=== PATIENT | female | born 1940 | race Caucasian/White ===

== ENCOUNTER 2024-12-16 09:10 | Emergency (ER) | payer OTHER, SELFPAY ==
[2024-12-16 09:14] VITALS: BP 127/81
--- NOTE | 2024-12-16 09:27 | ED.GENMED ---
History of Present Illness
<Tere Hammond MEDICAL PHOTOGRAPHER - Last Filed: 12/16/24 15:22>
General
Chief Complaint: Heart Rate Problem
Source: patient
Exam Limitations: none
Time Seen by Provider: 12/16/24 09:25
Nursing documentation reviewed up to this point in time: agreed with
History of Present Illness
History of Present Illness:
76-year-old female history of HLD, mitral regurg presents stating she woke up at 5 AM to go to the bathroom and noted that her heart rate was fast and irregular. She denies shortness of breath or chest pain. She states she feels 'a little
lightheaded.' She denies N/V/D/C.
Past History
<Tere Hammond, MEDICAL PHOTOGRAPHER - Last Filed: 12/16/24 15:22>
Past History
ED Past Medical History: Hypercholesterolemia and Other (Mitral valve regurgitation.)
ED Past Surgical History: Tonsilectomy
Social History
Tobacco: Non-smoker
Alcohol: Occasional
Review of Systems
<Tere Hammond, MEDICAL PHOTOGRAPHER - Last Filed: 12/16/24 15:22>
Review of Systems
Allergies reviewed?: Yes
All Other Systems: ROS reviewed and negative except as documented in HPI and ROS
Constitutional: Denies fever or fatigue
EENT: Denies sore throat
Respiratory: Denies cough or trouble breathing
Cardiac: Reports palpitations; Denies chest pain, diaphoresis or syncope
ABD/GI: Denies abdominal pain, nausea, vomiting or diarrhea
: Denies dysuria, frequency or difficulty voiding
Musculoskeletal: Reports no symptoms
Skin: Reports no symptoms
Neurological: Reports no symptoms
Phy Exam
<Tere Hammond, MEDICAL PHOTOGRAPHER - Last Filed: 12/16/24 15:22>
Physical Exam
Physical Exam:
GENERAL: No acute distress. A&Ox3.
CONSTITUTIONAL: Afebrile.
EYES: clear, conjunctivae normal
ENMT: moist mucus membranes, Pharynx nl
RESPIRATORY: Regular respirations, nonlabored, lungs clear.
CARDIOVASCULAR: Irregularly irregular and fast. no murmurs, no rubs.
GI: Soft, nontender, normal BS
MUSCULOSKELETAL: Moves with ease. Well perfused.
SKIN: Warm, dry, pink
PSYCH: Normal mood and affect. Well kept, interactive and appropriate
NEUROLOGIC: Awake, alert and oriented. No focal neurological deficits
Scores
<Tere Hammond NP - Last Filed: 12/16/24 15:22>
[id number] Score for Afib Stroke Risk
Score: 3
Anticoagulation Recommendations: Recommend anticoagulation (as validated in nonvalvular fib)
<Alvarez Hsu MD - Last Filed: 12/16/24 12:18>
[id number] Score for Afib Stroke Risk
Age in Years (65=0, 65-74=1, >/=75=2): > or = 75
Sex (Female=+1): Female
Congestive Heart Failure History (Yes=+1): No
Hypertension History (Yes=+1): No
Stroke/TIA/Thromboembolism History (Yes=+2): No
Vascular Disease History (Yes=+1): No
Diabetes Mellitus (Yes=+1): No
Score: 3
Anticoagulation Recommendations: Recommend anticoagulation (as validated in nonvalvular fib)
Course
<Tere Hammond NP - Last Filed: 12/16/24 15:22>
Orders/Labs/Results
Orders:
Orders
12/16/24 09:11
ECG [Electrocardiogram (*1)] Urgent
Reason for Study: Palpitations
EKG- Treatment ONCE
12/16/24 09:18
Cardiac Monitoring- Treatment ONCE
IV Insert/Care/Rem.- Treatment PRN
O2 Therapy [RESP] Urgent
Titrate/Wean O2 to maintain O2 sat greater than (%): 93
Special Instructions: TO MAINTAIN CONTINUOUS O2 SATS >/= 93%
Pulse Ox/cont/shift [RESP] Urgent
Quantity: 1
Special Instructions: continuous pulse ox
12/16/24 09:23
Complete Blood Count/With Diff Urgent
Comprehensive Metabolic Panel Urgent
Magnesium Urgent
NT-proBNP Urgent
TSH Reflex To Free T4 Urgent
Comment: MAG & TSH REFLEX ADDED ON BY FLOOR 9:50AM 12-16-24
Troponin I Urgent
12/16/24 09:52
0.9% Sodium Chloride 500 ml [Nss] 500 ml IV BOLUS
Diltiazem HCl [Cardizem] 15 mg IV NOW STA
12/16/24 09:53
Add On- LAB Urgent
Tests Added?: magnesium, TSH to reflex free T4
12/16/24 10:00
Diltiazem 125 mg/125 ml Nss [Cardizem] 125 mg in 125 ml IV PER PROTOCOL
Initial dose in mg/hr, then titrate:: 5
Titrate to keep:: Heart rate 80-100 bpm
Titrate by mg/hr:: 5 mg/hr
Frequency of titrations (minutes):: 15
Maximum dose in mg/hr:: 15
12/16/24 10:32
EKG [Electrocardiogram (*1)] Urgent
Reason for Study: Atrial Fibrillation
EKG- Treatment ONCE
12/16/24 12:07
Apixaban [Eliquis] 5 mg PO NOW STA
Abnormal Lab Results
12/16/24
09:23
Absolute Neuts (auto) 7.3 H 10^3/uL
(1.4-6.5)
Lymphocytes % 19.7 L %
(20.5-51.1)
Glucose 113 H mg/dl
(70-99)
12/16/24 09:23
12/16/24 09:23
Vital Signs
Initial and Last Documented VS:
Initial Vital Signs
Pulse Resp BP Pulse Ox
103 18 127/81 99
12/16/24 09:14 12/16/24 09:14 12/16/24 09:14 12/16/24 09:14
Last Documented Vital Signs
Pulse Resp BP Pulse Ox
75 17 113/72 99
12/16/24 12:15 12/16/24 12:15 12/16/24 12:00 12/16/24 12:15
<Alvarez Hsu MD - Last Filed: 12/16/24 12:18>
Orders/Labs/Results
Orders:
Orders
12/16/24 09:11
ECG [Electrocardiogram (*1)] Urgent
Reason for Study: Palpitations
EKG- Treatment ONCE
12/16/24 09:18
Cardiac Monitoring- Treatment ONCE
IV Insert/Care/Rem.- Treatment PRN
O2 Therapy [RESP] Urgent
Titrate/Wean O2 to maintain O2 sat greater than (%): 93
Special Instructions: TO MAINTAIN CONTINUOUS O2 SATS >/= 93%
Pulse Ox/cont/shift [RESP] Urgent
Quantity: 1
Special Instructions: continuous pulse ox
12/16/24 09:23
Complete Blood Count/With Diff Urgent
Comprehensive Metabolic Panel Urgent
Magnesium Urgent
NT-proBNP Urgent
TSH Reflex To Free T4 Urgent
Comment: MAG & TSH REFLEX ADDED ON BY FLOOR 9:50AM 12-16-24
Troponin I Urgent
12/16/24 09:52
0.9% Sodium Chloride 500 ml [Nss] 500 ml IV BOLUS
Diltiazem HCl [Cardizem] 15 mg IV NOW STA
12/16/24 09:53
Add On- LAB Urgent
Tests Added?: magnesium, TSH to reflex free T4
12/16/24 10:00
Diltiazem 125 mg/125 ml Nss [Cardizem] 125 mg in 125 ml IV PER PROTOCOL
Initial dose in mg/hr, then titrate:: 5
Titrate to keep:: Heart rate 80-100 bpm
Titrate by mg/hr:: 5 mg/hr
Frequency of titrations (minutes):: 15
Maximum dose in mg/hr:: 15
12/16/24 10:32
EKG [Electrocardiogram (*1)] Urgent
Reason for Study: Atrial Fibrillation
EKG- Treatment ONCE
12/16/24 12:07
Apixaban [Eliquis] 5 mg PO NOW STA
Abnormal Lab Results
12/16/24
09:23
Absolute Neuts (auto) 7.3 H 10^3/uL
(1.4-6.5)
Lymphocytes % 19.7 L %
(20.5-51.1)
Glucose 113 H mg/dl
(70-99)
12/16/24 09:23
12/16/24 09:23
Vital Signs
Initial and Last Documented VS:
Initial Vital Signs
Pulse Resp BP Pulse Ox
103 18 127/81 99
12/16/24 09:14 12/16/24 09:14 12/16/24 09:14 12/16/24 09:14
Last Documented Vital Signs
Pulse Resp BP Pulse Ox
75 17 113/72 99
12/16/24 12:15 12/16/24 12:15 12/16/24 12:00 12/16/24 12:15
Rebekahlt;Tere Hammond NP - Last Filed: 12/16/24 15:22>
MDM/Problems Addressed
MDM/Problems Addressed:
76-year-old female history of HLD, mitral regurg presents stating she woke up at 5 AM to go to the bathroom and noted that her heart rate was fast and irregular. She denies shortness of breath or chest pain. She states she feels 'a little
lightheaded.' She denies N/V/D/C.
9:45 a.m.
Case discussed with Dr. Hsu who will assume care from this point
<Tere Hammond NP - Last Filed: 12/16/24 15:22>
*Critical Care Note
Total Time (30-74mins, 75-104mins- exclusive of procedures): Not Applicable
ED Attending Note
<Tere Hammond NP - Last Filed: 12/16/24 15:22>
-
Portions of this chart may have been created with voice recognition software.� Occasional wrong word or��sound alike� substitutions may have occurred due to the inherent limitations of voice recognition software.
<Alvarez Hsu MD - Last Filed: 12/16/24 12:18>
ED Attending Note
Patient seen and examined by attending physician: Yes
ED Attending Note:
Patient with history of hypercholesterolemia, presents to ED secondary to sudden onset of chest palpitations, as she was walking back to her bed from restroom, shortly after waking up this morning. Denies chest pain or shortness of breath. Denies
nausea or vomiting. Denies diaphoresis. Denies dizziness. Patient states that she had 2 additional episodes in October, which resolved within minutes. Patient does have history of PVCs. Denies recent illness. Denies recent change in
medications or diet. Denies recent illness. Denies smoking or drinking alcohol. Patient, however, does admit to not drinking of water routinely.
Physical Exam
General: no apparent distress, not acutely ill. afebrile.
Head: nc/at. eomi
Neck: supple. normal range of motion.
Heart: irregularly irregular, tachycardic, no murmur. equal radial pulses.
Lungs: no acute respiratory distress. clear bilaterally
Abdomen: normal bowel sounds. not tender.
Neuro: alert and oriented x 3. no focal neurological deficits
Skin: no rash
Psychiatric: well kept. interactive and cooperative
Extremities: no edema. no calf tenderness.
During initial IV fluid administration, patient noted to convert spontaneously to normal sinus rhythm, confirmed by repeat EKG. Afterwards, patient remains in sinus rhythm with resolution of presenting palpitations sensation, during observation.
Discussed with on-call nuclear engineering technician at [facility] -recommend starting patient on Eliquis along with lopressor for rate control. Patient given option to either start lopressor daily versus as needed., Patient prefers to take the medication
as needed, along with Eliquis twice daily. Cardiology office will contact patient at home for an urgent outpatient evaluation. Patient expresses understanding at time of discharge, to the care of her spouse.
Discharge Plan
Departure
Patient Disposition: Home (Routine Discharge)
Date of Disposition: 12/16/24
Time of Disposition: 12:07
Patient with high blood pressure during this ER visit?: Yes
Condition: Good
Discharge Problem:
Atrial fibrillation
Instructions: Atrial Fibrillation (DC)
Prescriptions:
New
Eliquis 5 mg tablet
5 mg PO BID Qty: 60 0RF
metoprolol tartrate 25 mg tablet
25 mg PO PRN PRN (Reason: palpitation) Qty: 20 0RF
Referrals:
Brooke Fernandez MD [Family Provider] -
Activity Restrictions/Additional Instructions:
As discussed, please follow-up with your nuclear engineering technician for further evaluation and treatment. Your prescription has been sent electronically to [facility] in [place].
Interventions
Interventions:
*Risk Screen - Suicide Last Done: 12/16/24 09:14
*General Assessment Last Done: 12/16/24 09:14
*Neglect/Abuse Screening Last Done: 12/16/24 09:14
*ED COVID-19 Vaccine History Last Done: 12/16/24 09:48
*Nursing Disposition Last Done: 12/16/24 12:37
ED- Cardiac Assessment Last Done: 12/16/24 11:59
ED- Pulmonary Assessment Last Done: 12/16/24 12:00
Discharge Date and Time
Discharge Date/Time: 12/16/24 12:39
Print Language: SYRIAC
[2024-12-16 09:31] LABS: % Basophils 0.8 % (0-2); % Eosinophils 1.3 % (0-6); % Immature Granulocytes 0.4 % (0-0.5); % Lymphocytes 19.7 % (20.5-51.1); % Monocytes 5.3 % (1.7-9.3); % Neutrophils 72.5 % (42.2-75.2); Absolute Basophils 0.1 10^3/uL (0-0.2); Absolute Eosinophils 0.1 10^3/uL (0-0.7); Absolute Monocytes 0.5 10^3/uL (0.1-0.6); Absolute Neutrophils 7.3 10^3/uL (1.4-6.5); Hematocrit 44.5 % (37.0-47.0); Hemoglobin 14.9 g/dL (12.0-16.0); Mean Corp Hgb Conc. 33.5 g/dL (33.0-37.0); Mean Corpuscular Volume 89.7 fL (81.0-99.0); Nucleated Red Blood Cells % 0 %; Platelet Count 262 10^3/uL (130-400); Red Blood Cell Count 4.96 10^6/uL (4.20-5.40); Red Cell Dist. Width 13.2 % (11.5-14.5)
[2024-12-16 09:41] VITALS: BMI 25.9
[2024-12-16 09:58] LABS: ALT (SGPT) 17 U/L (0-35); AST (SGOT) 23 U/L (14-36); Albumin 4.4 g/dl (3.5-5.0); Alkaline Phosphatase 77 U/L (38-126); Blood Urea Nitrogen 14 mg/dl (7-17); Calcium 9.7 mg/dl (8.4-10.2); Carbon Dioxide 29 mmol/L (22-30); Chloride 100 mmol/L (98-107); Estimated Creatinine Clearance 59 ml/min; Glucose 113 mg/dl (70-99); Potassium 4.3 mmol/L (3.5-5.1); Sodium 136 mmol/L (135-145); Total Bilirubin 0.6 mg/dl (0.2-1.3); Total Protein 6.7 g/dl (6.3-8.2); eGFR > 60.00
[2024-12-16] MEDS: NSS 500 IV (10:00)
[2024-12-16 10:06] LABS: Magnesium 2.3 mg/dl (1.6-2.3)
[2024-12-16 10:08] LABS: NT-proBNP 493 pg/ml; Troponin I < 0.012 ng/ml
[2024-12-16 10:45] LABS: TSH Reflex To Free T4 3.17 uIU/ml (0.47-4.68)
[2024-12-16 11:00] VITALS: BP 105/76
[2024-12-16 11:53] VITALS: BP 105/76
[2024-12-16 12:00] VITALS: BP 113/72
[2024-12-16] MEDS: ELIQUIS 5 MG PO (12:19)
== END 2024-12-16 12:39 | disposition home or self-care (01) ==
LOC: EMR 09:10
PROVIDERS: Emergency Medicine; EMERGENCY PHYSICIAN Emergency Medicine; FAMILY PHYSICIAN Internal Medicine Geriatric Medicine
DX: I48.91 Unspecified atrial fibrillation (principal); E78.00 Pure hypercholesterolemia, unspecified; I34.0 Nonrheumatic mitral (valve) insufficiency
CPT/HCPCS: 96360; 99284; 80053; 83735; 83880; 84443; 84484; 85025; 93005